=== PATIENT | female | born 1945 | race Caucasian/White ===

== ENCOUNTER 2016-06-20 20:31 | Inpatient (IN) | payer OTHER ==
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
[2016-06-20 21:30] LABS: % IMMATURE GRANULYOCYTES 0.6 % (0.0-1.1); ABSOLUTE IMMATURE GRANULOCYTES 0.05 10^3/uL (0.00-0.10); ADD DIFF? NO; ADD MORPH? NO; ADD SCAN? NO; ATYPICAL LYMPHOCYTE FLAG 0 (0-99); FRAGMENT RBC FLAG 0 (0-99); HEMATOCRIT 36.4 % (38.0-47.0); HEMOGLOBIN 12.6 g/dL (12.6-16.3); LEFT SHIFT FLG 0 (0-99); LIPEMIA HEMOLYSIS FLAG 90 (0-99); MEAN CELL HEMOGLOBIN 30.5 pg (27.9-34.1); MEAN CELL HEMOGLOBIN CONCENTR. 34.6 g/dL (32.4-36.7); MEAN CELL VOLUME 88.1 fL (81.5-99.8); MEAN PLATELET VOLUME 9.5 fL (8.7-11.7); PLATELET CLUMPS FLAG 0 (0-99); PLATELET COUNT 232 10^3/uL (150-400); RED BLOOD CELL COUNT 4.13 10^6/uL (4.18-5.33); RED CELL DISTRIBUTION WIDTH 12.3 % (11.5-15.2)
[2016-06-20 21:39] LABS: PROTIME(PATIENT) 13.1 SEC (12.0-15.0)
[2016-06-20 21:40] LABS: APTT 23.6 SEC (23.0-38.0)
[2016-06-20 21:44] LABS: ANION GAP 9 mEq/L (8-16); CALCIUM 9.4 mg/dL (8.5-10.4); CARBON DIOXIDE 26 mEq/l (22-31); CHLORIDE 107 mEq/L (97-110); CREATININE 0.5 mg/dL (0.6-1.0); GLOMERULAR FILTRATION RATE > 60; GLUCOSE 111 mg/dL (70-100); LACTATE DEHYDROGENASE 475 IU/L (313-618); SODIUM 142 mEq/L (134-144)
[2016-06-20] MEDS ORDERED: DEXAMETHASONE 10 MG/ML VIAL IVP ONE (21:51)
[2016-06-20] MEDS ORDERED: levETIRAcetam 750 MG in NS 100 ML IV ONE (21:51)
[2016-06-20] MEDS ORDERED: NS W/ 20 KCl/L 1,000 ML IV SCH (22:15)
[2016-06-20] MEDS ORDERED: LORazepam 2 MG/ML INJ ONE (22:17)
[2016-06-20] MEDS ORDERED: LORazepam 2 MG/ML INJ IVP PRN (22:18)
[2016-06-20] MEDS ORDERED: ACETAMINOPHEN 325 MG TAB PO PRN (22:21)
[2016-06-20] MEDS ORDERED: LORazepam 2 MG/ML INJ IVP ONE (22:26)
[2016-06-20] MEDS ORDERED: DEXAMETHASONE VARIABLE DOSE IVP/PO SCH (22:30)
[2016-06-20] MEDS ORDERED: DEXAMETHASONE 4 MG/ML VIAL IVP PRN (23:21)
[2016-06-21] MEDS: DEXAMETHASONE 4 MG TAB PO SCH ×5 (00:44→21:08)
[2016-06-21 05:46] LABS: % IMMATURE GRANULYOCYTES 0.5 % (0.0-1.1); ABSOLUTE IMMATURE GRANULOCYTES 0.03 10^3/uL (0.00-0.10); ADD DIFF? NO; ADD MORPH? NO; ADD SCAN? NO; ATYPICAL LYMPHOCYTE FLAG 0 (0-99); FRAGMENT RBC FLAG 0 (0-99); HEMOGLOBIN 11.8 g/dL (12.6-16.3); LEFT SHIFT FLG 0 (0-99); LIPEMIA HEMOLYSIS FLAG 90 (0-99); MEAN CELL HEMOGLOBIN 30.3 pg (27.9-34.1); MEAN CELL HEMOGLOBIN CONCENTR. 34.7 g/dL (32.4-36.7); MEAN CELL VOLUME 87.4 fL (81.5-99.8); MEAN PLATELET VOLUME 9.5 fL (8.7-11.7); PLATELET CLUMPS FLAG 0 (0-99); PLATELET COUNT 191 10^3/uL (150-400); RED BLOOD CELL COUNT 3.89 10^6/uL (4.18-5.33); RED CELL DISTRIBUTION WIDTH 12.4 % (11.5-15.2)
[2016-06-21 06:02] LABS: APTT 24.8 SEC (23.0-38.0); INR 1.02 (0.83-1.16); PROTIME(PATIENT) 13.3 SEC (12.0-15.0)
[2016-06-21 06:14] LABS: ANION GAP 8 mEq/L (8-16); CALCIUM 8.9 mg/dL (8.5-10.4); CARBON DIOXIDE 23 mEq/l (22-31); CHLORIDE 110 mEq/L (97-110); CREATININE 0.5 mg/dL (0.6-1.0); GLOMERULAR FILTRATION RATE > 60; GLUCOSE 112 mg/dL (70-100); POTASSIUM 3.9 mEq/L (3.5-5.2); SODIUM 141 mEq/L (134-144)
[2016-06-21] MEDS ORDERED: levETIRAcetam 750 MG in NS 100 ML IV SCH (09:00)
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
[2016-06-21] MEDS ORDERED: IOPAMIDOL (ISOVUE-300) 100 ML BTL IV ONE (17:16)
--- NOTE | 2016-06-21 18:35 | CT ---
CT Chest With Contrast 1746 hours Indication: Intracranial mass. History of breast cancer. Rule out metastatic disease within the lo st.. Technique: Spiral images were obtained through the chest with the uneventful intravenous administr ation of 100 mL of Isovue-300. Images were reconstructed and reviewed in multiple planes. Dose redu ction techniques were utilized. Findings: Lung and large airways: Normal. No significant pulmonary nodules. Incidental 4 mm calcified granuloma inferior aspect left upper lobe. Bronchi: No significant bronchial wall thickening Pleura: Normal. Vessels: The thoracic aorta has a normal contour. There is no aneurysm or dissection. Heart and pericardium: Normal. Mediastinum and kaela: There is mildly prominent node in the anterior superior mediastinal fat on seri es 3 image 75 measuring 15 x 10 mm and anterior right distal tracheal node on image 82 measuring 17 x 12 mm. No additional hilar or mediastinal lymph nodes are appreciated. There is no significant axill isaiah lymphadenopathy. Chest wall and lower neck: Normal. Limited upper abdomen: No significant abnormality. Skeletal system: Vertebral body heights are well-maintained. There are no lytic or sclerotic osseous lesions. Impression: 1. Mildly prominent lymph node anterior superior mediastinal fat and anterior to the distal right tra evangelista. 2. No evidence of pulmonary nodules. 3. No osseous metastatic lesions identified in the chest.
--- NOTE | 2016-06-21 18:39 | CT ---
CT Scan of the Abdomen and Pelvis (With Contrast) 1746 hours History: Intracranial mass. History of breast cancer. Evaluate for possible metastatic disease in the abdomen and pelvis. Technique: Axial computed tomographic images of the abdomen and pelvis were obtained with the unevent ful intravenous administration of 100 mL Isovue-300 contrast. Oral contrast was also administered. Im ages were reviewed in multiple planes. Dose reduction techniques were utilized. CT Abdomen and Pelvis Findings: Lung bases: Normal. Liver: Normal. Spleen: Normal. Gallbladder and Bile Ducts: Normal. Pancreas: Normal. Adrenals: Normal. Kidneys: No obstruction or solid masses. Abdominal Aorta: No aneurysm. Pelvic structures: There are numerous calcifications associated with retroflexed uterus compatible wi th underlying numerous uterine fibroids. No significant adnexal mass is seen within the pelvis. Bladder: Normal. Appendix: Normal. Bowel Loops: Normal. No bowel obstruction, ascites, or significant retroperitoneal lymphadenopathy. Skeletal system: Vertebral body heights are well-maintained. There are no significant lytic or scler otic osseous lesions. Impression: 1. Numerous uterine fibroid suspected. No significant mass within the abdomen and pelvis. No evidence for metastatic disease. 2. No underlying osseous metastatic lesions.
[2016-06-21] MEDS ORDERED: ALPRAZolam 1 MG TAB PO SCH (21:00)
[2016-06-21] MEDS: ALPRAZolam 0.5 MG TAB PO SCH (21:05)
[2016-06-21] MEDS: levETIRAcetam 500 MG TAB PO SCH (21:08)
[2016-06-22 04:51] LABS: COLOR YELLOW; LEUKOCYTE ESTERASE,URINE NEGATIVE (NEGATIVE); NITRITE,URINE NEGATIVE (NEGATIVE)
[2016-06-22 04:54] LABS: MUCUS TRACE /lpf (NONE-1+)
[2016-06-22] MEDS: DEXAMETHASONE 4 MG TAB PO SCH ×4 (07:21→22:50)
[2016-06-22] MEDS: levETIRAcetam 500 MG TAB PO SCH ×2 (10:30→20:34)
--- NOTE | 2016-06-22 11:27 | NEUSURGPN ---
Assessment/Plan: 70 yo female with a right frontal mass, given that she had a negative MRI in 2012, this may be more likely to be a dural based metastasis than a meningioma as originally thought - she still refuses surgery or treatment, I spoke to her again about all the reasons we recommend treatment and not treating this will most likely result in her decline at some point - psych and ethics agree that she is capable of making a decision about this - I am waiting to see if she wants to be discharged home, as we are not providing any meaningful care for her here. Subjective: no current complaints Objective: AAOx3 face symmetric, speech clear mild left drift of arm and le - Physician Patient Seen by : Donna Neurosurgery Physical Exam - Vitals, I&O, Labs I and O 06/21/16 06/22/16 06/23/16 05:59 05:59 05:59 Intake Total 500 300 Output Total 675 Balance 500 -375 Weight 50.9 kg Intake: Oral (ml) 500 300 Output: Urine (ml) 675 Toilet 300 Bedside Commode 375 Other: Number of Voids Toilet 1 Bedside Commode 1 1 Incontinence 1 Vital Signs Temp Pulse Resp BP Pulse Ox 35.6 C L 69 16 131/71 H 93 06/22/16 08:08 06/22/16 08:08 06/22/16 08:08 06/22/16 08:08 06/22/16 08:08 Laboratory Results 06/21/16 05:35 06/21/16 05:35 ICD10 Worksheet Patient Problems: Problems Problem Status Diagnosed Ataxia Acute Intracranial mass Acute
[2016-06-22] MEDS: ALPRAZolam 0.5 MG TAB PO SCH (20:34)
[2016-06-23] MEDS: DEXAMETHASONE 4 MG TAB PO SCH ×3 (06:17→17:15)
[2016-06-23] MEDS: levETIRAcetam 500 MG TAB PO SCH ×2 (09:47→20:44)
--- NOTE | 2016-06-23 10:20 | NEUSURGPN ---
Assessment/Plan: 70 yo female with a right frontal mass, given that she had a negative MRI in 2012, this may be more likely to be a dural based metastasis than a meningioma as originally thought - she still refuses surgery or treatment, I andrew spoke to her again and said I'd be happy to discuss this again at any point with her when she is ready. - psych and ethics agree that she is capable of making a decision about this - awaiting plans for SNF discharge Subjective: complains that she is losing everything Objective: AAOx3, mild left drift stable, right side full strength - Physician Patient Seen by : Donna Neurosurgery Physical Exam - Vitals, I&O, Labs I and O 06/22/16 06/23/16 06/24/16 05:59 05:59 05:59 Intake Total 300 350 Output Total 675 600 300 Balance -375 -250 -300 Intake: Oral (ml) 300 350 Output: Urine (ml) 675 600 300 Toilet 300 Bedside Commode 375 300 Incontinence 600 Other: Number of Voids Bedside Commode 1 1 Incontinence 1 2 Number of Stools Bedside Commode 1 Incontinence 1 Vital Signs Temp Pulse Resp BP Pulse Ox 36.6 C 60 14 113/53 L 95 06/23/16 07:52 06/23/16 07:52 06/23/16 07:52 06/23/16 07:52 06/23/16 07:52 Laboratory Results 06/21/16 05:35 06/21/16 05:35 ICD10 Worksheet Patient Problems: Problems Problem Status Diagnosed Ataxia Acute Intracranial mass Acute
[2016-06-23] MEDS: ALPRAZolam 1 MG TAB PO SCH (20:44)
[2016-06-23] MEDS ORDERED: ALPRAZolam 1 MG TAB PO SCH (21:00)
[2016-06-24] MEDS: DEXAMETHASONE 4 MG TAB PO SCH ×5 (00:29→23:04)
--- NOTE | 2016-06-24 07:37 | SOAPPROG ---
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 Objective: Vital Signs Temp Pulse Resp BP Pulse Ox 36.5 C 52 L 12 141/64 H 95 06/24/16 07:10 06/24/16 07:10 06/24/16 07:10 06/24/16 07:10 06/24/16 07:10 Laboratory Results 06/21/16 05:35 06/21/16 05:35 06/23/16 06/24/16 06/25/16 05:59 05:59 05:59 Intake Total 350 500 Output Total 600 300 Balance -250 200 PT 13.3 SEC (12.0-15.0) 06/21/16 05:35 INR 1.02 (0.83-1.16) 06/21/16 05:35 AAOx4, +FC PERRL, EOMI, no facial droop 5/5 +light touch ICD10 Worksheet Patient Problems: Problems Problem Status Diagnosed Ataxia Acute Intracranial mass Acute
[2016-06-24] MEDS: levETIRAcetam 500 MG TAB PO SCH ×2 (09:41→20:48)
[2016-06-24] MEDS: ALPRAZolam 1 MG TAB PO SCH (20:48)
[2016-06-25] MEDS: DEXAMETHASONE 4 MG TAB PO SCH ×4 (06:05→23:28)
[2016-06-25] MEDS: levETIRAcetam 500 MG TAB PO SCH ×2 (08:58→20:30)
--- NOTE | 2016-06-25 10:07 | NEUSURGPN ---
Assessment/Plan: 70F with who presented with left sided weakness and a right sided brain mass with edema. -Discussed with patient that we need to move forward with a treatment plan either through palliative care and transfer to SNF [facility] Spoke with case management and palliative care consult placed. Patient is declining our treatment recommendations of steroids, Keppra, surgery here at [facility] -Discussed with Dr. Cline who also saw the patient earlier today -Please notify NS with any change in neuro/motor exam Subjective: Denies any new neurological symptoms today Objective: NAD A&Ox3 MAex4, LUE diffusely 4/5, RUE and RLE 5/5, LLE 5-/5. CN II-XII grossly intact. EILEEN - Physician Discussed Patient with Dr.: Other Patient Seen by Dr.: Other (Son) Neurosurgery Physical Exam - Vitals, I&O, Labs I and O 06/24/16 06/25/16 06/26/16 05:59 05:59 05:59 Intake Total 500 790 240 Output Total 300 1250 Balance 200 -460 240 Intake: Oral (ml) 500 790 240 Output: Urine (ml) 300 1250 Bedside Commode 300 450 Incontinence 800 Other: Intake Quantity Yes Sufficient Number of Voids Toilet 1 Bedside Commode 1 Incontinence 2 Number of Stools Toilet 1 Bedside Commode 1 1 Vital Signs Temp Pulse Resp BP Pulse Ox 36.7 C 62 18 152/78 H 96 06/25/16 07:46 06/25/16 07:46 06/25/16 07:46 06/25/16 07:46 06/25/16 07:46 Laboratory Results 06/21/16 05:35 06/21/16 05:35 ICD10 Worksheet Patient Problems: Problems Problem Status Diagnosed Ataxia Acute Intracranial mass Acute
[2016-06-25] MEDS: ALPRAZolam 1 MG TAB PO SCH (20:31)
[2016-06-26] MEDS: DEXAMETHASONE 4 MG TAB PO SCH ×4 (05:35→23:22)
--- NOTE | 2016-06-26 07:55 | SOAPPROG ---
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 patient still feeling suicidal Objective: Vital Signs Temp Pulse Resp BP Pulse Ox 36.5 C 48 L 13 139/57 H 96 06/26/16 04:00 06/26/16 04:00 06/26/16 04:00 06/26/16 04:00 06/26/16 04:00 Laboratory Results 06/21/16 05:35 06/21/16 05:35 06/25/16 06/26/16 06/27/16 05:59 05:59 05:59 Intake Total 790 890 Output Total 1250 Balance -460 890 PT 13.3 SEC (12.0-15.0) 06/21/16 05:35 INR 1.02 (0.83-1.16) 06/21/16 05:35 AAOX4, +FC PERRL, EOMI, no facial droop NAWAF x 4 + light touch ICD10 Worksheet Patient Problems: Problems Problem Status Diagnosed Ataxia Acute Intracranial mass Acute
[2016-06-26] MEDS: levETIRAcetam 500 MG TAB PO SCH ×2 (09:00→20:09)
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
[2016-06-26] MEDS: ALPRAZolam 1 MG TAB PO SCH (20:09)
[2016-06-27] MEDS: DEXAMETHASONE 4 MG TAB PO SCH ×3 (04:35→16:52)
--- NOTE | 2016-06-27 07:12 | SOAPPROG ---
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 Objective: Vital Signs Temp Pulse Resp BP Pulse Ox 36.8 C 52 L 13 138/68 H 95 06/27/16 04:00 06/27/16 04:00 06/27/16 04:00 06/27/16 04:00 06/27/16 04:00 Laboratory Results 06/21/16 05:35 06/21/16 05:35 06/26/16 06/27/16 06/28/16 05:59 05:59 05:59 Intake Total 890 1160 Output Total 850 Balance 890 310 PT 13.3 SEC (12.0-15.0) 06/21/16 05:35 INR 1.02 (0.83-1.16) 06/21/16 05:35 AAOX4, +FC PERRL, EOMI, no facial droop NAWAF x 4 + light touch ICD10 Worksheet Patient Problems: Problems Problem Status Diagnosed Ataxia Acute Intracranial mass Acute Palliative care encounter Acute
[2016-06-27 08:16] VITALS: O2SAT 97
[2016-06-27] MEDS: levETIRAcetam 500 MG TAB PO SCH (09:19)
--- NOTE | 2016-06-27 14:50 | PDIAF ---
- Diagnosis Code Status: Do Not Resuscitate - Medication Management Discharge Medications: Medications to Continue on Transfer ALPRAZolam [Xanax 1 MG (*)] 0.5 mg PO HS 06/20/16 [Last Taken 06/19/16] Dexamethasone [Decadron 4 MG (*)] 4 mg PO Q6H #0 tab 06/27/16 [Last Taken Unknown] levETIRAcetam [Keppra 500 mg (*)] 750 mg PO BID #0 tab 06/27/16 [Last Taken Unknown] Discharge Medications: Refer to the Discharge Home Medication list for PRN reason. - Orders Services needed: Registered Nurse, Physical Therapy, Occupational Therapy Diet Recommendation: no restrictions on diet Diet Texture: Regular Texture Diet Additional: decadron should taper off over the course of two weeks - Follow Up Care Current Providers and Referrals: Otilia Allen MD [Primary Care Provider] - As per Instructions
--- NOTE | 2016-06-27 15:01 | PDIAF ---
- Diagnosis Code Status: Do Not Resuscitate - Medication Management Discharge Medications: Medications to Continue on Transfer ALPRAZolam [Xanax 1 MG (*)] 0.5 mg PO HS 06/20/16 [Last Taken 06/19/16] Discharge Medications: Refer to the Discharge Home Medication list for PRN reason. - Orders Services needed: Registered Nurse, Physical Therapy, Occupational Therapy Diet Recommendation: no restrictions on diet Diet Texture: Regular Texture Diet Additional: please dc keppra or decadron if it appears on order sheet. - Follow Up Care Current Providers and Referrals: Otilia Allen MD [Primary Care Provider] - As per Instructions
[2016-06-27 16:35] VITALS: BP 132/84; PULSE 79; RESP 20; TEMP 98.2
--- NOTE | 2016-07-03 14:30 | GDS ---
[f rep st] DISCHARGE SUMMARY ADMISSION DIAGNOSIS: Brain lesion. DISCHARGE DIAGNOSIS: Brain lesion. SECONDARY DISCHARGE DIAGNOSIS: Suicidal thoughts. HISTORY AND PHYSICAL: Please see admission history and physical. COURSE: Patient is a 70-year-old female with a history of previously treated breast cancer. She pre sented to the emergency department on 06/20/2016 with confusion and difficulty walking. Imaging stud ies of the brain demonstrated a right-sided lesion. She was started on Decadron and Keppra and admit albina for observation. An MRI of the brain demonstrated a right-sided frontal lesion, suspicious for m eningioma or metastatic lesion. She did have an MRI in 2011 that was read as negative. The patient was refusing to take the Keppra and Decadron and was expressing suicidal thoughts to the nurses. A p sychiatric consultation was obtained, and it was felt that she had depression with posttraumatic stre ss disorder with some chronic suicidal ideation; however, she was not a suicidal risk. The patient d eclined surgical intervention and was initially offered transfer to [facility], but she did not want to proceed with that either. The patient was eventually discharged to a senior living [facility] on 06/27/2016. Patient was discharged with a Decadron taper over the course of 2 weeks as well as a prescription for Keppra. It was suggested that she follow up with her primary care physician, her psychiatrist, and [facility]. /[id number]/MODL
== END 2016-06-27 17:10 | DRG 55 ==
LOC: F2W 23:00
PROVIDERS: ADMIT Neurological Surgery; ATTEND Neurological Surgery
DX: D49.6 Neoplasm of unspecified behavior of brain (principal); K21.9 Gastro-esophageal reflux disease without esophagitis; G81.94 Hemiplegia, unspecified affecting left nondominant side; R45.851 Suicidal ideations; F32.9 Major depressive disorder, single episode, unspecified; F43.10 Post-traumatic stress disorder, unspecified; Z85.3 Personal history of malignant neoplasm of breast; Z66 Do not resuscitate
CPT/HCPCS: 97112-GP; 97116-GP; 97162-GP; 97165-GO; 97530-GP; 97532-GO; 97535-GO; G8978-GP-CJ; G8979-GP-CI; G8987-GO-CL; G8988-GO-CI; J1953; Q9967

== ENCOUNTER 2016-09-26 14:08 | Emergency (ER) | payer OTHER ==
--- NOTE | 2016-09-26 14:15 | EDPHY ---
H & P Time Seen by Provider: 09/26/16 14:14 - Medical/Surgical History Hx Asthma: No Hx Chronic Respiratory Disease: No Hx Diabetes: No Hx Cardiac Disease: No Hx Renal Disease: No Hx Cirrhosis: No Hx Alcoholism: No Hx HIV/AIDS: No Hx Splenectomy or Spleen Trauma: No Other PMH: breast CA lumpectomies, recent brain tumor dx, bacterial vaginosis, GERD, tubal ligation - Social History Smoking Status: Former smoker Constitutional: Initial Vital Signs Temperature (C) 36.8 C 09/26/16 14:18 Heart Rate 89 09/26/16 14:18 Respiratory Rate 16 09/26/16 14:18 Blood Pressure 143/78 H 09/26/16 14:18 O2 Sat (%) 97 09/26/16 14:18 O2 Delivery Mode Room Air Allergies/Adverse Reactions: No Known Allergies Allergy (Verified 06/20/16 20:39) Home Medications: Medication Instructions Recorded ALPRAZolam [Xanax 1 MG (*)] 0.5 mg PO HS 06/20/16 Dexamethasone [Decadron 4 MG (*)] 4 mg PO Q6H #0 tab 06/27/16 levETIRAcetam [Keppra 500 mg (*)] 750 mg PO BID #0 tab 06/27/16 Medical Decision Making ED Course/Re-evaluation: CHIEF COMPLAINT: Psychiatric evaluation HISTORY OF PRESENT ILLNESS: The patient is a 70-year-old female who presents because she is uncomfortable with her recent change in nursing facilities. She was telling staff she was suicidal but tells me that she said that to get out of her current situation. Her only medical complaint is feeling weak when she stands. She denies other complaints at this time. REVIEW OF SYSTEMS: A 10 point review of systems was performed and is negative with the exception of the elements mentioned in the history of present illness. PHYSICAL EXAM: General Appearance: Alert, well hydrated, appropriate, and non-toxic appearing. Head: Atraumatic without scalp tenderness or obvious injury Eyes: Pupils equal, round, reactive to light and accommodation, EOMI, no trauma , no injection. Ears: Clear bilaterally, no perforation, normal landmarks Nose: Atraumatic, no rhinorrhea, clear. Throat: There is no erythema or exudates, no lesions, normal tonsils, mucus membranes moist. Neck: Supple, 2+ carotid upstroke, nontender, no lymphadenopathy. Respiratory: No retractions, no distress, no wheezes, and no accessory muscle use. Lungs are clear to auscultation bilaterally. Cardiovascular: Regular rate and rhythm, no murmurs, rubs, or gallops. Bilateral carotid, radial, dorsalis pedis, and posterior tibial pulses intact. Good capillary refill all extremities. Gastrointestinal: Abdomen is soft, nontender, non-distended, no masses, no rebound, no guarding, no peritoneal signs. Musculoskeletal: Normal active ROM of all extremities, atraumatic. Neurological: Alert, appropriate, and interactive. The patient has normal DTRs and non-focal cranial nerves, motor, sensory, and cerebellar exam. Skin: No rashes, good turgor, no nodules on palpation. Past medical history: GERD, breast cancer, brain tumor. Past surgical history: Tubal ligation. Family history: N/A. Social history: Lives in nursing facility. DIFFERENTIAL DIAGNOSIS: The differential diagnosis for the patient's depression included but was not limited to functional and major depression, situational depression, medication side effect, drugs, and alcohol abuse. MEDICAL DECISION MAKING: Patient is in no acute distress and is hemodynamically stable. We are awaiting psychiatric team's evaluation. This patient reports that she is here because she is uncomfortable with her recent change in nursing facilities. Radha with [facility] will consult with this patient to determine a course of action for her. 1433: Consulted with Radha from [facility]. She reports that the patient is not actively suicidal and was saying she was so she could get out of her living situation. She believes she would do well with a Xanax prescription. - Data Points Laboratory Results: Laboratory Results 09/26/16 15:40 09/26/16 15:40 09/26/16 09/26/16 15:40 15:40 WBC 12.04 10^3/uL H 10^3/uL (3.80-9.50) RBC 3.51 10^6/uL L 10^6/uL (4.18-5.33) Hgb 10.6 g/dL L g/dL (12.6-16.3) Hct 31.9 % L % (38.0-47.0) MCV 90.9 fL fL (81.5-99.8) MCH 30.2 pg pg (27.9-34.1) MCHC 33.2 g/dL g/dL (32.4-36.7) RDW 16.7 % H % (11.5-15.2) Plt Count 234 10^3/uL 10^3/uL (150-400) MPV 8.7 fL fL (8.7-11.7) Neut % (Auto) Not Reported Lymph % (Auto) Not Reported [place] % (Auto) Not Reported Eos % (Auto) Not Reported Baso % (Auto) Not Reported Nucleat RBC Rel Count 0.0 % % (0.0-0.2) Absolute Neuts (auto) Not Reported Absolute Lymphs (auto) Not Reported Absolute Monos (auto) Not Reported Absolute Eos (auto) Not Reported Absolute Basos (auto) Not Reported Absolute Nucleated RBC 0.00 10^3/uL 10^3/uL (0-0.01) Immature Gran % Not Reported Immature Gran # Not Reported Platelet Estimate Pending Sodium 134 mEq/L mEq/L (134-144) Potassium 4.9 mEq/L mEq/L (3.5-5.2) Chloride 100 mEq/L mEq/L (97-110) Carbon Dioxide 22 mEq/l mEq/l (22-31) Anion Gap 12 mEq/L mEq/L (8-16) BUN 29 mg/dL H mg/dL (7-23) Creatinine 0.3 mg/dL L mg/dL (0.6-1.0) Estimated GFR > 60 Glucose 181 mg/dL H mg/dL (70-100) Calcium 9.9 mg/dL mg/dL (8.5-10.4) Salicylates < 1.0 mg/dL L mg/dL (2.0-20.0) Acetaminophen < 10 mcg/mL L mcg/mL (10.0-30.0) Ethyl Alcohol < 10 mg/dL mg/dL (0-10) Medications Given: Discontinued Medications Lorazepam (Ativan) 1 mg PO EDNOW ONE Stop: 09/26/16 14:32 Last Admin: 09/26/16 15:00 Dose: 1 mg Departure - Departure Disposition: Home, Routine, Self-Care Clinical Impression: Mental health-related complaint Condition: Good Instructions: Suicide Prevention for Adults (ED) Additional Instructions: Follow up with your primary care provider for reevaluation if needed. Return for any serious worsening of condition. Referrals: Otilia Allen MD [Primary Care Provider] - As per Instructions Report Scribed for: Fady Mcintosh Report Scribed by: Prince Roque Date of Report: 09/26/16 Time of Report: 14:33
[2016-09-26 14:19] VITALS: TEMP 98.2; O2SAT 97
[2016-09-26] MEDS ORDERED: LORazepam 1 MG TAB PO ONE (14:31)
[2016-09-26 15:48] LABS: ADD DIFF? YES; ADD MORPH? NO; ADD SCAN? NO; ATYPICAL LYMPHOCYTE FLAG 0 (0-99); FRAGMENT RBC FLAG 0 (0-99); HEMATOCRIT 31.9 % (38.0-47.0); HEMOGLOBIN 10.6 g/dL (12.6-16.3); LEFT SHIFT FLG 50 (0-99); LIPEMIA HEMOLYSIS FLAG 80 (0-99); MEAN CELL HEMOGLOBIN 30.2 pg (27.9-34.1); MEAN CELL HEMOGLOBIN CONCENTR. 33.2 g/dL (32.4-36.7); MEAN CELL VOLUME 90.9 fL (81.5-99.8); MEAN PLATELET VOLUME 8.7 fL (8.7-11.7); PLATELET CLUMPS FLAG 0 (0-99); PLATELET COUNT 234 10^3/uL (150-400); RED BLOOD CELL COUNT 3.51 10^6/uL (4.18-5.33); RED CELL DISTRIBUTION WIDTH 16.7 % (11.5-15.2)
[2016-09-26 16:01] LABS: ANION GAP 12 mEq/L (8-16); CALCIUM 9.9 mg/dL (8.5-10.4); CARBON DIOXIDE 22 mEq/l (22-31); CHLORIDE 100 mEq/L (97-110); CREATININE 0.3 mg/dL (0.6-1.0); ETHANOL SERUM < 10 mg/dL (0-10); GLOMERULAR FILTRATION RATE > 60; GLUCOSE 181 mg/dL (70-100); POTASSIUM 4.9 mEq/L (3.5-5.2); SALICYLATE < 1.0 mg/dL (2.0-20.0); SODIUM 134 mEq/L (134-144)
[2016-09-26 17:14] LABS: PLATELET ESTIMATE ADEQUATE (ADEQ)
[2016-09-26 17:47] VITALS: BP 142/85; PULSE 86; RESP 18
== END 2016-09-26 18:06 | disposition home or self-care (01) ==
LOC: EDUNIT#
DX: F99 Mental disorder, not otherwise specified (principal); Z85.3 Personal history of malignant neoplasm of breast; Z87.891 Personal history of nicotine dependence
CPT/HCPCS: G0480